=== PATIENT | female | born 1980 | race African-American/Black ===

== ENCOUNTER 2023-10-01 19:32 | Emergency (ER) | payer MEDICAID ==
[~2023-10-01] VITALS: Ht 172.7 cm; Wt 86.2 kg
[2023-10-01 19:47] VITALS: BP 119/84; PULSE 80; RESP 16; TEMP 97.9; O2SAT 99
[2023-10-01] MEDS ORDERED: CARB15DR27 LEFT EAR (21:41)
== END 2023-10-01 21:55 | disposition home or self-care (01) ==
LOC: MED 19:32
DX: H61.22 Impacted cerumen, left ear (principal); F12.90 Cannabis use, unspecified, uncomplicated; F17.210 Nicotine dependence, cigarettes, uncomplicated; Z98.890 Other specified postprocedural states; Z79.899 Other long term (current) drug therapy
CPT/HCPCS: 99283